=== PATIENT | male | born 1960 | race Caucasian/White ===

== ENCOUNTER 2017-09-19 13:00 | Outpatient (RCR) | payer OTHER, SELFPAY ==
--- NOTE | 2017-09-19 13:00 | DT_ITS ---
This patient was seen during an EMR downtime September 19, 2017 - September 26, 2017. This patient may have a combination of paper and electronic documentation or all paper documentation. All documentation is viewable within the e-chart portion of [employer] for each patient visit.
--- NOTE | 2017-09-27 07:51 | HP.PTEVAL_ITS ---
Patient's Visit Information SHILOH SALDANA is a 56 year old M referred to Physical Therapy by [facility] Doctor with a diagnosis of LOW BACK PAIN. Date of Evaluation: 09/19/17 Physical Therapist: Chris Herrera, PT, - Visit Plan Frequency: 2x /Week Duration: 6 Weeks Plan: Patient to see Aquatic PT for LUMBAR ROM,STRENGTH,FLEXABLITY LE -HIP/HAMS, POSTURE,CONDITIONING - Subjective Subjective: This 56 y/o male presents to physical therapy low back pain for many years. Patient reported falling 80 feet on back in 1982 that started LBP. Patient had h/o multiple lumbar surgery 1988 with fusion ,disectomy/ laminectomy.Patient reports bilteral low back pain with radicular symptosm pain that wraps around anterior thigh. Patient denies parathesia/tingling.Bowel/ bladder -.Patient also reports worsening balance but no h/o of falls in last year. Aggravating factors walking,standing,sitting,driving.Easy factors flexion, stretch,PT.Patient sleeping okay. Patient pain affects quality of life and ADL' S. Pain affects sleeping.Patient had MRI showed stenosis/DDD. SOCIAL: . VOCATION: retired - Pain Bilateral Back Pain Intensity (Out of 10): 5 Pain Intensity Range: 10 - Objective POSTURE: mild foward posture in sitting postion ,reduce lordosis. GAIT: mild posture reciprocal pattern. PALPATION: tender L-S. NEURO: denies parathesia/ tingling,reflexes L3-4,L4-5,L5-S1 2/3. LUMBAR ROM: flexion 25% limited, extension 50% limited,lateral flexion 25% limited,. AROM: right hip flexion and IR both significantly limited and painfull. FLEXABLITY: hams mod loss, extension severe loss - Special Tests L/S Slump test left side: Positive L/S Slump test right side: Positive L/S Left Straight Leg Raise: Positive L/S Right Straight Leg Raise: Positive Lumbar Standing: Flexion - Mechanical Response: No effect Lumbar Standing: Flexion - Symptoms During Testing: Increases Lumbar Standing: Flexion - Symptoms After Testing: Worse Lumbar Standing: Extension - Mechanical Response: No effect Lumbar Standing: Extension - Symptoms During Testing: Increases Lumbar Standing: Extension - Symptoms After Testing: Worse Lumbar Standing: Right Side Glides - Mechanical Response: No effect Lumbar Standing: Right Side [place] - Symptoms During Testing: Abolishes Lumbar Standing: Right Side [place] - Symptoms After Testing: Worse Lumbar Standing: Left Side [place] - Mechanical Response: No effect Lumbar Standing: Left Side [place] - Symptoms During Testing: No effect Lumbar Standing: Left Side [place] - Symptoms After Testing: Worse - Goals Goal 1:: Patient to be Independant with Aquatic PT Goal Time Frame: 4-6 Weeks Goal 2:: Patient to be Independant with posture for AD'S Goal Time Frame: 4-6 Weeks Goal 3:: Patient to decrease low back pain by 50% or greater to improve function . Goal Time Frame: 4-6 Weeks Goal 4:: Patient to improve function of recovery for ADL'S Goal Time Frame: 4-6 Weeks Goal 5:: Patient be able to perform ADL'S and husework tasks with min limitaions - Rehabilitation Potential Physical Therapy Diagnosis: This 56 y/o male has low back pain with h/o of surgery lumbar with decrease ROM ,strength ,and function thus benifit from skilled PT. PATIENT IS MOD COMLEXITY. BACK OWESTRY: 44. MOBLITY. G8978:CK- CURRENT. G8979:CJ-GOAL Rehabilitation Potential: Fair - Anticipated Interventions Patient/Client Instruction: Educate patient on: Condition, Plan of Care For the Purpose of:: To decrease pain, To increase ROM, To improve muscle performance and motor function, To improve ability to perform ADL's, To increase tolerance to activity/condition/position, To improve performance and independence with ADL's, To improve ability of physical actions for home/ community/work/leisure, To improve gait and locomotor functions, To improve health of tissue, To decrease soft tissue restriction, To increase flexibility/ ROM, To improve ability to perform tasks related to life management Therapeutic Exercise to Include: Strength training, Body mechanics, Postural training, Flexibilty training, In an aquatic setting, Active ROM, Dynamic Lumbar Stabilization For the Purpose of:: To decrease pain, To increase ROM, To improve muscle performance and motor function, To improve ability to perform ADL's, To increase tolerance to activity/condition/position, To improve performance and independence with ADL's, To improve ability of physical actions for home/ community/work/leisure, To improve gait and locomotor functions, To improve health of tissue, To decrease soft tissue restriction, To increase flexibility/ ROM, To improve ability to perform tasks related to life management Thank you for the opportunity to evaluate your patient. For Medicare and Medicare HMO plans, please review the plan of care and approve it. It will need to be FAXED BACK to us at [phone] for Medicare purposes. Please let me know if there are questions or concerns regarding this plan of care. Physician Signature: Date:
--- NOTE | 2017-12-08 10:14 | HP.PTDCNRP_ITS ---
HP - Discharge Summary (1) - Patient Information SHILOH SALDANA was seen in my office for initial evaluation on 09/19/17. The following Plan of Care was established for this patient: Initial Frequency: 2x /Week Initial Duration: 6 Weeks - Anticipated Interventions Patient/Client Instruction: Educate patient on: Condition, Plan of Care For the Purpose of:: To decrease pain, To increase ROM, To improve muscle performance and motor function, To improve ability to perform ADL's, To increase tolerance to activity/condition/position, To improve performance and independence with ADL's, To improve ability of physical actions for home/ community/work/leisure, To improve gait and locomotor functions, To improve health of tissue, To decrease soft tissue restriction, To increase flexibility/ ROM, To improve ability to perform tasks related to life management Therapeutic Exercise to Include: Strength training, Body mechanics, Postural training, Flexibilty training, In an aquatic setting, Active ROM, Dynamic Lumbar Stabilization For the Purpose of:: To decrease pain, To increase ROM, To improve muscle performance and motor function, To improve ability to perform ADL's, To increase tolerance to activity/condition/position, To improve performance and independence with ADL's, To improve ability of physical actions for home/ community/work/leisure, To improve gait and locomotor functions, To improve health of tissue, To decrease soft tissue restriction, To increase flexibility/ ROM, To improve ability to perform tasks related to life management This patient was last seen in our office . Pertinent comments regarding their Physical therapy will appear below: Patient seen for PT for intial PT evaluation. At this point I will be discontinuing this patient from physical therapy. I would be happy to see this patient again in the future if found appropriate by the physician. Thank you! Chris Herrera, PT,
== END 2017-09-19 19:00 | disposition home or self-care (01) ==
LOC: PT 13:00
DX: M54.5 Low back pain (principal)
CPT/HCPCS: 97162; G8978; G8979

== ENCOUNTER 2020-02-28 14:17 | Emergency (ER) | payer OTHER, MEDICAID, SELFPAY ==
[2020-02-28 14:24] VITALS: BP 117/65; PULSE 94; RESP 18; TEMP 35.7; O2SAT 98; BMI 26.4
--- NOTE | 2020-02-28 14:33 | ED.VIS.GEN ---
History of Present Illness Chief Complaint: Nausea/Vomiting/Diarrhea Informant: Patient Narrative: Patient is a 59-year-old male who presents to the emergency department for multiple complaints. He states his symptoms initially started last night. He ate at a truck stop and thinks that he might of gotten food poisoning. He has had multiple episodes of vomiting and diarrhea since then. He has been having shaking chills. He also developed a productive cough. No known sick exposures. No known coronavirus exposure. He has not tried taking anything for this. He does have diffuse abdominal discomfort. No urinary symptoms. No rashes. No headache or stiff neck. He has been feeling short of breath but denies chest pain. No leg swelling or calf pain. He is a current everyday smoker. Being on any recent antibiotics. No recent traveling. Past Medical History - Allergies and Home Meds Allergies/Adverse Reactions: Allergies No Known Allergies Allergy (Verified 02/28/20 14:26) Primary Care Physician: [place] [Primary Care Provider] - Prior records reviewed: Yes Smoking Status: Current every day smoker Review of Systems All systems negative except as indicated General: Reports: Chills, Fever, Malaise, Sweats Eyes: Denies: Visual changes - bilaterally, Diplopia ENT: Denies: Rhinorrhea, Sore throat Cardiovascular: Denies: Chest pain, Palpitations Respiratory: Reports: Dyspnea, Cough, Sputum Gastrointestinal: Reports: Abdominal pain, Nausea, Vomiting, Diarrhea. Denies: Melena, Hematochezia Genitourinary: Denies: Dysuria, Hematuria, Frequency Musculoskeletal: Reports: Myalgias. Denies: Back pain, Extremity Pain Skin: Denies: Rash, Wounds Neurological: Denies: Headache, Weakness, Numbness Physical Exam Vital Signs/Narrative: Vital Signs Temp Pulse Resp BP Pulse Ox 02/28/20 14:24 96.3 F L 94 18 117/65 98 General: Well nourished, Well developed, - - Patient appears ill but nontoxic. Head: Normocephalic, Atraumatic Eyes: Perrl, EOMI ENT: Moist mucous membranes, No rhinorrhea Neck: Supple, Nontender Cardiovascular: Regular rhythm, No murmurs, Tachycardia Respiratory: No distress, CTA bilaterally, Chest nontender Abdomen: Soft, Nontender, Nondistended, Normal bowel sounds, Tender - Diffuse, mild Back: Nontender, Normal Inspection Extremities: Nontender, No edema. Negative for: Calf Tenderness Skin: Normal color, No rash Neurological: Alert, Oriented x3, Cranial nerves II-XII grossly intact, Normal Strength, Normal Sensation Psychological: Normal affect, Normal Mood Diagnostic/Tx/Re-eval - Medical Decision Making Patient presents to the emerge department for nausea/vomiting, diarrhea, cough, chills. Upon arrival to the emergency department he is mildly hypothermic but otherwise normal vital signs. Will check basic lab work, EKG and coronavirus swab. Will start IV fluids and give a dose of Zofran and Tylenol for symptomatic treatment. Patient feeling much better after IV fluids, Tylenol and Zofran. Lab work revealed a mildly elevated lactic acid but otherwise no significant acute abnormality. White blood cell count within normal limits. Patient does feel comfortable being discharged home. I do not feel that the elevated lactic acid is from ischemic bowel as his abdominal pain is very mild and not out of proportion to exam. Likely from dehydration secondary to his vomiting and diarrhea. Patient understands the coronavirus is currently pending and needs to self isolate until this results. Symptoms could potentially be related to food poisoning although the cough does not fit this picture. He otherwise is to try to remain as hydrated as possible. We will write a prescription for Zofran. He is to follow-up with his PCP. Warning signs and symptoms which to return to the emergency department are reviewed. He understands and is agreeable with this plan. ED Disposition - Plan for ED Patient: Disposition: Home or Assisted Living Diagnosis: Nausea and vomiting, Diarrhea, Cough, Dehydration Instructions: ED Gastroenteritis Vs Food Poison, ED Dehydration Adult Prescriptions: Ondansetron [Zofran Odt] 4 mg PO Q8H PRN PRN #10 tab PRN Reason: Nausea Transmission Status: Pending to [facility]errals: [facility] [Primary Care Provider] - 3-5 Days
[2020-02-28 15:41] LABS: Absolute Lymphocyte Count 1.59 X10^3/uL (0.83-4.51); Basophil# 0.07 X10^3/uL; Basophil% 1.1 % (0-1); Eosinophil# 0.04 X10^3/uL; Eosinophils% 0.6 % (0-5); Hematocrit 43.9 % (40-54); Hemoglobin 14.5 g/dL (13.0-16.5); Lymphocyte # 1.59 X10^3/ul (4.0); Lymphocyte % 25.6 % (19-41); Mean Corpuscular Hgb 30.4 pg (27.0-32.0); Mean Platelet Vol. 8.7 fl (6.2-12.0); Monocyte# 0.51 X10^3/uL; Monocyte% 8.2 % (0-10); NRBC Flagged by Analyzer 0 % (0-5); Neutrophil % 64.3 % (47-70); Platelet Count 266 K/mm3 (150-450); RBC Distribution Width CV 13.5 % (11.6-14.6); RBC Distribution Width SD 46.3 fl (35.1-43.9); Red Blood Count 4.77 M/mm3 (4.6-6.2); White Blood Count 6.2 K/mm3 (4.4-11.0)
[2020-02-28] MEDS: Ondansetron 4 MG/2 ML Vial IV (15:41)
[2020-02-28 15:54] VITALS: BP 135/95; PULSE 55; RESP 17; TEMP 36.2; O2SAT 100
[2020-02-28 16:02] LABS: ALB/GLOB Ratio 1.1 RATIO (0.9-2.4); AST(SGOT) 13 U/L (15-37); Alanine Aminotransfer ALT/SGPT 18 U/L (16-61); Albumin, Serum 3.9 g/dL (3.2-5.0); Alkaline Phosphatase 130 U/L (45-117); Anion Gap 5 (5-15); BUN 12 mg/dL (7-18); BUN/Creat Ratio 11.1 RATIO (10-20); Calcium,Total 9.3 mg/dL (8.5-10.1); Chloride 108 mmol/L (98-107); Creatinine, Serum 1.08 mg/dL (0.70-1.30); EST Glomerular Filtration Rate 74 mL/min (>60); Est Glom Filt Rate - Afr Amer 89 mL/min (>60); Estimated Creatinine Clearance 78.84 ml/min; Globulin 3.6 g/dL (2.2-4.2); Glucose 122 mg/dL (74-106); Potassium 3.8 mmol/L (3.5-5.1); Protein, Total 7.5 g/dL (6.4-8.2); Sodium Level 141 mmol/L (136-145)
--- NOTE | 2020-02-28 16:03 | RAD_ITS ---
STUDY: X-RAY CHEST REASON FOR EXAM: Male, 59 years old. pt had chicken last night and 2.5 hrs after has had n/v/d. sob. pt is diaphoretic and cold. TECHNIQUE: Single AP portable view of the chest. COMPARISON: None. FINDINGS: The lungs are clear and expanded. There is no demonstrated pleural abnormality. Normal size heart. Normal mediastinum and cecilia. Normal visualized pulmonary arteries. Normal visualized aortic arch and descending thoracic aorta. Normal visualized thoracic spine. Normal visualized ribs, clavicles, and shoulders. There is no demonstrated abnormality of the visualized soft tissue structures of the upper abdomen. RAD/Chest 1 View (Portable) IMPRESSION: Normal x-ray examination of the chest. Electronically Signed: Deven Ellsworth MD at 16:20 EST Tel , Service support ,
[2020-02-28 16:24] LABS: Lactic Acid 2.7 mmol/L (0.4-1.9)
[2020-02-28 18:19] VITALS: BP 109/88; PULSE 77; RESP 17; O2SAT 94
[2020-02-28 19:35] LABS: Reflex Lactate? Y
== END 2020-02-28 19:04 | disposition home or self-care (01) ==
PROVIDERS: Emergency Provider Emergency Medicine
DX: R11.2 Nausea with vomiting, unspecified (principal); R19.7 Diarrhea, unspecified; E86.0 Dehydration; R05 Cough; R06.00 Dyspnea, unspecified; F17.200 Nicotine dependence, unspecified, uncomplicated
CPT/HCPCS: 71045; 80053; 83605; 84484; 85025; 87040; 87635; 96361; 96374; 99285; J2405; U0002

== ENCOUNTER 2020-02-29 08:42 | Observation (INO) | payer OTHER, MEDICAID, SELFPAY ==
[2020-02-28 14:24] VITALS: BMI 26.4
[2020-02-29] VITALS (11 sets, daily range): BP systolic 105–129; BP diastolic 61–85; PULSE 60–77; RESP 13–30; TEMP 35.9–37; O2SAT 98–100; BMI 25.4; BMI 25.0
--- NOTE | 2020-02-29 09:15 | EKG12_ITS ---
Test Reason : SOB Blood Pressure : / mmHG Vent. Rate : 065 BPM Atrial Rate : 065 BPM P-R Int : 000 ms QRS Dur : 088 ms QT Int : 430 ms P-R-T Axes : 000 075 066 degrees QTc Int : 447 ms Normal sinus rhythm Abnormal ECG Confirmed by HARMEET STOVALL MD ([id number]), editor managing director JOHANNA WILLIS ([id number]) on 03/04/2020 8:40:03 AM Referred By: IVAN Confirmed By:HARMEET STOVALL MD
--- NOTE | 2020-02-29 09:17 | ED.VISSUMM ---
- ER Visit Summary Date of Service: 02/29/20 Chief Complaint: Nausea and vomiting. History of Present Illness: The patient is a 59 M patient unsure of his past medical history. He has had prior back surgery he is on medications. States he was seen emergency department 2 to 3 days ago diagnosed with gastroenteritis. Basically negative work-up at that time. Says he is feeling as bad or worse. Complain nausea, vomiting diarrhea. He has not seen any bright red blood. States he has felt feverish but no documented temperature. Denies any dysuria. Physical Examination: Older male vital signs stable. Pulse ox 9% on room air no signs hypoxia. H EENT exam unremarkable. Neck nontender no lymphadenopathy. Lungs clear to auscultation bilaterally. Heart tachycardic rate about 107. No murmur. Abdomen soft nontender normal bowel sounds no peritoneal signs. Rectal exam loose brown stool. No mass. Nontender. No gross blood. No melena. Extremities moves all 4. Calves nontender. No edema. Neurologically is awake and alert with no focal motor deficits. Test Results: Chest x-ray portable 1 view shows no acute abnormality. No infiltrates. Normal cardiac silhouette. Interpreted by ok radiologist also read the film and agrees. EKG shows junctional rhythm rate of 65. No acute signs of MT. Or ischemia. CBC shows white count 10. Hemoglobin 14. Chemistries show mild hypokalemia 3.3 otherwise normal BUN and creatinine. Lactic acid is elevated 3.0. Previously was 2.7. Otherwise the labs are substantially different from the labs the patient had the other day. Emergency Department Course and Treatment: Gentleman with reported nausea vomiting diarrhea recently diagnosed with gastroenteritis. Screening labs will be obtained. IV fluids. Multiple repeat exams the patient has continued nausea and vomiting. Was given a second dose of Zofran. He was then given p.o. fluids and something to eat and he threw all that up. He was unable to keep any of it down. Repeat exam no change. His abdomen is benign. He is nondistended. There are no peritoneal signs. There is no localizing tenderness. There is no signs of obstruction. Treatment Plan: [] Disposition: [] Impression: Acute nausea, vomiting and diarrhea This note was generated with [employer] dictation software. It may contain incorrect words, spelling, and punctuation that were not noted in review of the chart prior to signing ED Disposition - Plan for ED Patient: [facility]errals: [facility] [Primary Care Provider] -
[2020-02-29] MEDS: 0.9% Normal Saline 1,000 ML 1000 ML IV (09:24)
[2020-02-29 09:25] LABS: Absolute Lymphocyte Count 3.99 X10^3/uL (0.83-4.51); Basophil# 0.05 X10^3/uL; Basophil% 0.5 % (0-1); Eosinophil# 0.03 X10^3/uL; Eosinophils% 0.3 % (0-5); Hematocrit 44.2 % (40-54); Hemoglobin 14.8 g/dL (13.0-16.5); Lymphocyte # 3.99 X10^3/ul (4.0); Lymphocyte % 39.9 % (19-41); Mean Corp Hgb Conc 33.5 g/dL (32-36); Mean Corpuscular Hgb 30.6 pg (27.0-32.0); Mean Corpuscular Volume 91.3 fL (80-94); NRBC Flagged by Analyzer 0 % (0-5); Neutrophil # 5.01 X10^3/uL (2.7-7.7); Platelet Count 314 K/mm3 (150-450); RBC Distribution Width CV 13.6 % (11.6-14.6); RBC Distribution Width SD 45.7 fl (35.1-43.9); Red Blood Count 4.84 M/mm3 (4.6-6.2)
[2020-02-29 09:34] LABS: Anion Gap 7 (5-15); BUN 19 mg/dL (7-18); BUN/Creat Ratio 15.1 RATIO (10-20); Calcium,Total 9.8 mg/dL (8.5-10.1); Chloride 109 mmol/L (98-107); Creatinine, Serum 1.26 mg/dL (0.70-1.30); EST Glomerular Filtration Rate 62 mL/min (>60); Est Glom Filt Rate - Afr Amer 75 mL/min (>60); Estimated Creatinine Clearance 69.58 ml/min; Glucose 129 mg/dL (74-106); Potassium 3.3 mmol/L (3.5-5.1); Sodium Level 141 mmol/L (136-145)
--- NOTE | 2020-02-29 09:35 | RAD_ITS ---
STUDY: X-RAY CHEST REASON FOR EXAM: Male, 59 years old. coughing up blood, shortness of breath TECHNIQUE: Single AP portable view of the chest. COMPARISON: 02/28/2020 FINDINGS: The lungs are clear and expanded. There is no demonstrated pleural abnormality. Normal size heart. Normal mediastinum and cecilia. Normal visualized pulmonary arteries. Normal visualized aortic arch and descending thoracic aorta. Normal visualized thoracic spine. Normal visualized ribs, clavicles, and shoulders. There is no demonstrated abnormality of the visualized soft tissue structures of the upper abdomen. RAD/Chest 1 View (Portable) IMPRESSION: Normal x-ray examination of the chest. Electronically Signed: Deven Ellsworth MD at 9:44 EST Tel , Service support ,
--- NOTE | 2020-02-29 09:44 | ED.RN ---
lactic acid 3.0 per lab, dr cabral notified
[2020-02-29] MEDS: Ondansetron 4 MG/2 ML Vial IV ×3 (10:17→21:00)
[2020-02-29 13:22] LABS: Reflex Lactate? Y
[2020-02-29 14:16] LABS: Lactic Acid 1.6 mmol/L (0.4-1.9)
[2020-02-29 14:24] LABS: Lipase 181 U/L (73-393)
[2020-02-29] MEDS: proMETHazine 25 MG/ML Syringe 12.5 MG IV (14:27)
[2020-02-29 14:33] LABS: AST(SGOT) 12 U/L (15-37); Alanine Aminotransfer ALT/SGPT 18 U/L (16-61); Albumin, Serum 4.1 g/dL (3.2-5.0); Alkaline Phosphatase 129 U/L (45-117); Globulin 3.7 g/dL (2.2-4.2); Protein, Total 7.8 g/dL (6.4-8.2)
--- NOTE | 2020-02-29 14:42 | ED.RN ---
spoke with pt daughter per pt request to give her an update about pt dispo.
--- NOTE | 2020-02-29 14:58 | HP.PCM_ITS ---
Problem List (1) Gastroenteritis Status: Acute History of Present Illness Date of Admission: 02/29/20 Chief Complaint: nausea and vomiting The patient is a 59 year old M who has been having intractable nausea and vomiting over the past 2 days. Patient states that occurred after eating something at a truck stop that did not sit well with him. Since then he has been having intractable nausea and vomiting. Also did have some diarrhea but that is since resolved. Seen here in the emergency room on the and looked fine and then was sent home only to come back today. Labs again were unremarkable except for slight elevation in his lactic acid. Patient received antiemetics and IV fluids. Patient never had any issues like this before. Patient does smoke marijuana daily and states he is never had any issues with intractable nausea and vomiting with it. [] Past Medical History Allergies No Known Allergies Allergy (Verified 02/29/20 08:46) Home Medications: Ambulatory Orders Medication Instructions Recorded NK 02/29/20 Smoking Status: Heavy Smoker (>10/day) Tobacco Use: Cigarettes Alcohol: None Drugs: Marijuana - *Family History Maternal History Items: - - No CAD Review of Systems Constitutional: Reports: Anorexia, Malaise. Denies: Chills, Fever Eyes: Denies: Blurred vision, Double vision HEENT: Denies: Head Aches, Sinus Congestion, Sinus Drainage Cardiovascular: Denies: Chest Pain, Palpitations Respiratory: Denies: Cough, Shortness of breath at rest, Sputum production Gastrointestinal: Reports: Abdominal Pain, Diarrhea, Nausea, Vomiting Genitourinary: Denies: Dysuria Musculoskeletal: Denies: Joint Pain, Joint Tenderness Skin: Denies: Rash, Wounds Neurological: Denies: Numbness, Tingling, Focal weakness Hematologic/ Lymphatic: Denies: Easy Bruising, Easy Bleeding Comment: All review of systems were negative except as mentioned above in the history of present illness and the other review of systems. VTE Information - Inpt Only VTE Present on Admission: No VTE Mechan Device Prophylaxis: None VTE Pharm Prophylaxis ordered?: No Reason prophylaxis not ordered:: Treatment Not Indicated Patient Problems: Active and Suspected Problems Gastroenteritis (Acute) - Physical Exam Vitals/I&O's: Vital Signs Temp Pulse Resp BP Pulse Ox 37.0 C 63 16 129/79 H 100 02/29/20 14:00 02/29/20 14:00 02/29/20 14:00 02/29/20 14:00 02/29/20 14:00 Oxygen Flow Rate (L/min) 2 Oxygen Delivery Method Room Air Weight: 87.4 kg Body Mass Index (BMI) 25.4 Intake and Output for Last 24 Hours 02/27/20 02/28/20 02/29/20 23:59 23:59 23:59 Intake Total 1000 / 1000 Balance 1000 / 1000 General: Alert, No apparent distress, - - Appears older than stated age. Afebrile. HEENT: Atraumatic, Normocephalic Neck: No Nodes, Thyroid Normal Size and Texture Lungs: Clear to auscultation, No rhonchi, No wheeze, No rales Cardiovascular: Regular rate, Regular Rhythm, Normal S1, Normal S2, No murmurs Abdomen: Bowel Sounds Present, Soft, Non-Distended, Tender - Diffuse Extremities: No edema, No Calf Tenderness Skin: No rashes, No breakdown Psych/Mental Status: Normal Affect, Appropriate Laboratory Results 02/29/20 08:41: WBC 10.0, RBC 4.84, Hgb 14.8, Hct 44.2, MCV 91.3, MCH 30.6, MCHC 33.5, RDW Std Deviation 45.7 H, RDW Coeff of Hema 13.6, Plt Count 314, MPV 9.0, Immature Gran % (Auto) 0.300, Neut % (Auto) 50.0, Lymph % (Auto) 39.9, [place] % (Auto) 9.0, Eos % (Auto) 0.3, Baso % (Auto) 0.5, Absolute Neuts (auto) 5.0, Absolute Lymphs (auto) 3.99, Nucleated RBC % 0 02/29/20 08:41: Sodium 141, Potassium 3.3 L, Chloride 109 H, Carbon Dioxide 25.0, Anion Gap 7, BUN 19 H, Creatinine 1.26, Estim Creat Clear Calc 69.58, Est GFR (MDRD) Af Amer 75, Est GFR (MDRD) Non-Af 62, BUN/Creatinine Ratio 15.1, Glucose 129 H, Calcium 9.8 02/29/20 08:41: Lactic Acid 3.0 H* 02/29/20 08:41: Total Bilirubin 0.70, Direct Bilirubin 0.20, AST 12 L, ALT 18, Alkaline Phosphatase 129 H, Total Protein 7.8, Albumin 4.1, Globulin 3.7 02/29/20 08:41: Lipase 181 02/29/20 13:40: Lactic Acid 1.6 Assessment/Plan All Active Problems Gastroenteritis (Acute) 1. Suspected gastroenteritis: Could be viral or foodborne associated. Other possibilities could be cannabinoid hyperemesis patient does smoke marijuana daily. Patient immediately refuted that but is on that possibility. Irregardless, supportive management. Belly is soft and benign. He does have some tenderness however I feel this is likely due to the retching. Continue with IV fluids, clear liquid diet, antiemetics and observe. If he gets better then diet can be advanced and if he tolerates that then he can be discharged. However if he gets worse, consider imaging of his abdomen. 2. Hypokalemia: Likely due to the vomiting and diarrhea that he did have. Replace and check magnesium level. 3. VTE prophylaxis low risk as he is observation status at this time. However if it appears the patient is going to require longer hospitalization, consider VTE prophylaxis if indicated. OBSV E&M: [id number] Initial observation care L2
[2020-02-29 16:16] LABS: Magnesium 2.1 mg/dL (1.6-2.6)
--- NOTE | 2020-02-29 16:57 | NURSING ---
attempted to call to verify home meds as pt states that he does take medications at home but can't remember which. no answer. will try again.
[2020-02-29] MEDS: 0.9% Saline Lock 10 ML Syringe IV (17:32)
--- NOTE | 2020-02-29 19:32 | NURSING ---
attempted x2 to call and verify home meds with no answer.
[2020-03-01] MEDS: proCHLORPERazine 10 MG/2 ML Vial 5 MG IV ×2 (00:41→23:08)
[2020-03-01] MEDS: Acetaminophen 325 MG Tablet 650 MG PO (01:56)
[2020-03-01 02:07] VITALS: BP 121/78; PULSE 64; RESP 16; TEMP 36.4; O2SAT 100
[2020-03-01 06:31] LABS: ALB/GLOB Ratio 1.1 RATIO (0.9-2.4); AST(SGOT) 15 U/L (15-37); Alanine Aminotransfer ALT/SGPT 19 U/L (16-61); Albumin, Serum 3.3 g/dL (3.2-5.0); Alkaline Phosphatase 101 U/L (45-117); Anion Gap 2 (5-15); BUN 20 mg/dL (7-18); BUN/Creat Ratio 21.3 RATIO (10-20); Calcium,Total 8.2 mg/dL (8.5-10.1); Chloride 111 mmol/L (98-107); Creatinine, Serum 0.94 mg/dL (0.70-1.30); EST Glomerular Filtration Rate 87 mL/min (>60); Est Glom Filt Rate - Afr Amer 105 mL/min (>60); Estimated Creatinine Clearance 93.26 ml/min; Globulin 3.1 g/dL (2.2-4.2); Glucose 97 mg/dL (74-106); Potassium 4.5 mmol/L (3.5-5.1); Protein, Total 6.4 g/dL (6.4-8.2); Sodium Level 139 mmol/L (136-145)
--- NOTE | 2020-03-01 08:59 | CM.UR ---
Spoke with Ivone at [facility] bed control/transfer center alerting of patient's admission. Faxed clinical at this time to [phone]. Wei Thomason RN, [facility].
[2020-03-01 09:00] VITALS: BP 116/71; PULSE 62; RESP 18; TEMP 37.1; O2SAT 100
--- NOTE | 2020-03-01 09:40 | CT_ITS ---
STUDY: CT BRAIN WITHOUT CONTRAST REASON FOR EXAM: Male, 59 years old. Confusion, nausea/vomiting x 2 days. RADIATION DOSAGE (If Supplied By Facility): CTDIvol = ( 44.99 ) mGy, DLP = ( 863.60 ) mGycm TECHNIQUE: Transaxial CT imaging of the brain was performed without administration of intravenous contrast material. Individualized dose optimization techniques were used for this CT. COMPARISON: No relevant priors. FINDINGS: Normal soft tissue structures. Normal calvarium. Normal size ventricles and extra-axial spaces for the patient''s age. Normal white matter tracts of the cerebral hemispheres. Normal basal ganglia and thalami. Normal brainstem. Normal cerebellum. There is no intracranial hemorrhage. There are no findings of an acute ischemic infarction. Mucous retention cyst in the floor the left maxillary sinus CT/Brain/Head without Contrast IMPRESSION: Normal unenhanced CT scan of the brain. Electronically Signed: Deven Ellsworth MD at 10:31 EST Tel , Service support ,
--- NOTE | 2020-03-01 10:42 | PCM.PN.HOSP ---
<Adolfo Duffy - Last Filed: 03/01/20 10:42> Patient Problems: Active and Suspected Problems Gastroenteritis (Acute) Reason for Visit: intractable nausea Subjective: Pt states that he has had no improvement in his nausea, however as of this AM he has had no vomiting episodes and is able to tolerate clears. No Diarrhea at all. No abdominal pain, fever, chills. Vitals/I&O's: Vital Signs Temp Pulse Resp BP Pulse Ox 98.7 F 62 18 116/71 100 03/01/20 09:00 03/01/20 09:00 03/01/20 09:00 03/01/20 09:00 03/01/20 09:00 Oxygen Flow Rate (L/min) 2 Oxygen Delivery Method Room Air Weight: 189 lb 9.561 oz Body Mass Index (BMI) 25.0 Intake and Output for Last 24 Hours 02/28/20 02/29/20 03/01/20 23:59 23:59 23:59 Intake Total 1450 / 1450 2400 / 2400 Balance 1450 / 1450 2400 / 2400 General: Alert, Oriented x3, Cooperative HEENT: Atraumatic, PERRLA, EOMI, Normocephalic Neck: Supple, No JVD, Negative Carotid Bruits Lungs: Clear to auscultation, Normal air movement Cardiovascular: Regular rate, No murmurs Abdomen: Bowel Sounds Present, Soft, Non Tender Extremities: No edema, Capillary Refill Less than 3 Seconds Skin: No rashes, No breakdown Musculoskeletal: No Tenderness to Palpation of Joints or Extremities Neurological: Cranial nerves II-XII grossly intact Psych/Mental Status: Normal Affect, Appropriate, Alert and oriented to time, place, person, mood and affect Laboratory Results 02/29/20 08:41: Total Bilirubin 0.70, Direct Bilirubin 0.20, AST 12 L, ALT 18, Alkaline Phosphatase 129 H, Total Protein 7.8, Albumin 4.1, Globulin 3.7 02/29/20 08:41: Lipase 181 02/29/20 08:41: Magnesium 2.1 02/29/20 13:40: Lactic Acid 1.6 03/01/20 05:52: Sodium 139, Potassium 4.5, Chloride 111 H, Carbon Dioxide 26.0, Anion Gap 2 L, BUN 20 H, Creatinine 0.94, Estim Creat Clear Calc 93.26, Est GFR (MDRD) Af Amer 105, Est GFR (MDRD) Non-Af 87, BUN/Creatinine Ratio 21.3 H, Glucose 97, Calcium 8.2 L, Total Bilirubin 0.60, AST 15, ALT 19, Alkaline Phosphatase 101, Total Protein 6.4, Albumin 3.3, Globulin 3.1, Albumin/Globulin Ratio 1.1 Current Medications Acetaminophen (Acetaminophen 325 Mg Tablet) 650 mg PO Q6H PRN PRN PRN Reason: Pain Score 1-10/Temp > 100.7 F Last Admin: 03/01/20 01:56 Dose: 650 mg Documented by: Amitriptyline HCl (Amitriptyline 100 Mg Tablet) 100 mg PO DAILY@2200 [facility] Last Admin: 02/29/20 23:24 Dose: Not Given Documented by: Atorvastatin Calcium (Atorvastatin Calcium 20 Mg Tablet) 20 mg PO QHS [facility] Last Admin: 02/29/20 23:24 Dose: Not Given Documented by: Citalopram Hydrobromide (Citalopram 40 Mg Tablet) 40 mg PO DAILY [facility] Sodium Chloride () 250 mls @ 15 mls/hr IV .[id number] PRN PRN Reason: Saline Flush Sodium Chloride () 250 mls @ 15 mls/hr IV .[id number] PRN PRN Reason: Additional IVPB Infusion Sodium Chloride () 1,000 mls @ 100 mls/hr IV .Q10H [facility] Ondansetron HCl (Ondansetron 4 Mg/2 Ml Vial) 4 mg IV Q8H PRN PRN PRN Reason: NAUSEA/VOMITING Last Admin: 02/29/20 21:00 Dose: 4 mg Documented by: Pregabalin (Pregabalin 75 Mg Capsule) 150 mg PO BID [facility] Last Admin: 02/29/20 23:24 Dose: Not Given Documented by: Prochlorperazine Edisylate (Prochlorperazine 10 Mg/2 Ml Vial) 5 mg IV Q4H PRN PRN PRN Reason: Breakthrough nausea/vomiting Last Admin: 03/01/20 00:41 Dose: 5 mg Documented by: Promethazine HCl (Promethazine 25 Mg/Ml Syringe) 12.5 mg IV Q6H PRN PRN PRN Reason: NAUSEA/VOMITING Sodium Chloride (0.9% Saline Lock 10 Ml Syringe) 10 - 40 ml IV UD PRN PRN Reason: SALINE FLUSH Last Admin: 02/29/20 17:32 Dose: 10 ml Documented by: STROKE Vital Signs/Narrative: Vital Signs Temp Pulse Resp BP Pulse Ox 03/01/20 09:00 98.7 F 62 18 116/71 100 Medical Necessity - Tobacco Use Smoking Status: Current every day smoker Tobacco Use: Cigarettes Assessment/Plan All Active Problems Gastroenteritis (Acute) 1. Intractable nausea - improved, but still with nausea. advance diet. adjust antiemetic regimen. Possibly gastroenteritis but he has had no diarrhea, no abd discomfort. Possibly cannabis hyperemesis syndrome. Potassium has normalized. Lactate has resolved. No leukocytosis or fever. Normal lipase and bili. CT brain neg, CXR normal. 2. HLD - statin 3. chronic pain - ultram, lyrica, elavil 4. Anx/Dep - celexa DVT ppx: lovenox DC planning: nausea improved but still significant. advance diet and attempt to control nausea better today. This patient was seen by Adolfo Duffy PA-C under the supervision of Dr. Anne. <Renny Anne F - Last Filed: 03/01/20 18:14> Vitals/I&O's: Vital Signs Temp Pulse Resp BP Pulse Ox 98.8 F 60 18 138/81 H 100 03/01/20 15:46 03/01/20 15:46 03/01/20 15:46 03/01/20 15:46 03/01/20 15:46 Oxygen Flow Rate (L/min) 2 Oxygen Delivery Method Room Air Weight: 189 lb 9.561 oz Body Mass Index (BMI) 25.0 Intake and Output for Last 24 Hours 02/28/20 02/29/20 03/01/20 23:59 23:59 23:59 Intake Total 1450 / 1450 3600 / 3600 Output Total 1260 / 1260 Balance 1450 / 1450 2340 / 2340 Laboratory Results 03/01/20 05:52: Sodium 139, Potassium 4.5, Chloride 111 H, Carbon Dioxide 26.0, Anion Gap 2 L, BUN 20 H, Creatinine 0.94, Estim Creat Clear Calc 93.26, Est GFR (MDRD) Af Amer 105, Est GFR (MDRD) Non-Af 87, BUN/Creatinine Ratio 21.3 H, Glucose 97, Calcium 8.2 L, Total Bilirubin 0.60, AST 15, ALT 19, Alkaline Phosphatase 101, Total Protein 6.4, Albumin 3.3, Globulin 3.1, Albumin/Globulin Ratio 1.1 03/01/20 05:52: Ethyl Alcohol 8.0 03/01/20 05:52: TSH 1.47 03/01/20 10:30: Urine Opiates Screen NEGATIVE, Urine Methadone Screen NEGATIVE, Ur Barbiturates Screen NEGATIVE, Ur Phencyclidine Scrn NEGATIVE, Ur Amphetamines Screen NEGATIVE, U Methamphetamin-MDMA NEGATIVE, U Benzodiazepines Scrn NEGATIVE, Urine Cocaine Screen NEGATIVE, U Cannabinoids Screen POSITIVE H, Ur Drug Screen Comment 03/01/20 12:27: Ammonia 11.0 03/01/20 12:30: Urine Color Yellow, Urine Clarity Clear, Urine pH 7.0, Ur Specific [place] 1.010, Urine Protein Negative, Urine Glucose (UA) Normal, Urine Ketones 50 H, Urine Occult Blood 150 H, Urine Nitrite Negative, Urine Bilirubin Negative, Urine Urobilinogen 1 H, Ur Leukocyte Esterase Negative, Urine RBC 0-5 SEEN, Urine WBC 0 SEEN, Ur Squamous Epith Cells 0 SEEN, Urine Bacteria 0 SEEN, Urine Mucus 0 SEEN Current Medications Acetaminophen (Acetaminophen 325 Mg Tablet) 650 mg PO Q6H PRN PRN PRN Reason: Pain Score 1-10/Temp > 100.7 F Last Admin: 03/01/20 01:56 Dose: 650 mg Documented by: Amitriptyline HCl (Amitriptyline 100 Mg Tablet) 100 mg PO DAILY@2200 [facility] Last Admin: 02/29/20 23:24 Dose: Not Given Documented by: Atorvastatin Calcium (Atorvastatin Calcium 20 Mg Tablet) 20 mg PO QHS [facility] Last Admin: 02/29/20 23:24 Dose: Not Given Documented by: Citalopram Hydrobromide (Citalopram 40 Mg Tablet) 40 mg PO DAILY [facility] Last Admin: 03/01/20 15:04 Dose: 40 mg Documented by: Enoxaparin Sodium (Enoxaparin 40 Mg/0.4 Ml Syringe) 40 mg SC DAILY [facility] Last Admin: 03/01/20 15:03 Dose: 40 mg Documented by: Sodium Chloride () 250 mls @ 15 mls/hr IV .[id number] PRN PRN Reason: Saline Flush Sodium Chloride () 250 mls @ 15 mls/hr IV .[id number] PRN PRN Reason: Additional IVPB Infusion Sodium Chloride () 1,000 mls @ 100 mls/hr IV .Q10H [facility] Last Admin: 03/01/20 15:03 Dose: 100 mls/hr Documented by: Ondansetron HCl (Ondansetron 4 Mg/2 Ml Vial) 4 mg IV Q8H PRN PRN PRN Reason: NAUSEA/VOMITING Last Admin: 02/29/20 21:00 Dose: 4 mg Documented by: Pregabalin (Pregabalin 75 Mg Capsule) 150 mg PO BID [facility] Last Admin: 03/01/20 13:12 Dose: Not Given Documented by: Prochlorperazine Edisylate (Prochlorperazine 10 Mg/2 Ml Vial) 5 mg IV Q4H PRN PRN PRN Reason: Breakthrough nausea/vomiting Last Admin: 03/01/20 00:41 Dose: 5 mg Documented by: Promethazine HCl (Promethazine 25 Mg/Ml Syringe) 12.5 mg IV Q6H PRN PRN PRN Reason: NAUSEA/VOMITING Promethazine HCl (Promethazine 25 Mg Tablet) 25 mg PO Q4H PRN PRN PRN Reason: NAUSEA/VOMITING Sodium Chloride (0.9% Saline Lock 10 Ml Syringe) 10 - 40 ml IV UD PRN PRN Reason: SALINE FLUSH Last Admin: 02/29/20 17:32 Dose: 10 ml Documented by: STROKE Vital Signs/Narrative: Vital Signs Temp Pulse Resp BP Pulse Ox 03/01/20 15:46 98.8 F 60 18 138/81 H 100 Addendum: Dr. Anne I personally examined the patient and reviewed the chart. I agree with the above. 59-year-old male presents to the hospital with nausea, vomiting, diarrhea. He says it started after he ate something [place] a [place] stop. However family is also very concerned because he seems very confused. 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 However, family noticed that his pillowcase was empty and he states that he ran out and just never called to get a refill which is unusual. He knows where he is at but he does not know what year it is. Lab work is unremarkable and CT of the brain was normal. He is supposed to be on amitriptyline, citalopram, and Lyrica however electrolytes are stable and his QTC is normal. We will continue with IV fluids and will obtain an EEG, if that is normal then can proceed with a possible MRI assuming that his confusion remains unchanged over the weekend. OBSV E&M: 11038 Subsequent observation care L2
[2020-03-01 12:00] VITALS: BP 136/75; PULSE 56; RESP 18; TEMP 37.1; O2SAT 100
[2020-03-01 13:14] LABS: Amphetamine Urine VISTA NEGATIVE (<1000 ng/mL); Barbiturate Urine VISTA NEGATIVE (< 200 ng/mL); Benzodiazepine Urine VISTA NEGATIVE (< 200 ng/mL); Cocaine Urine VISTA NEGATIVE (< 300 ng/mL); Ecstacy Urine VISTA NEGATIVE (< 500 ng/mL); Methadone Urine VISTA NEGATIVE (< 300 ng/mL); PCP Urine VISTA NEGATIVE (< 25 ng/mL); THC Urine VISTA POSITIVE (< 50 ng/mL); Vista UDS pH Range 6
--- NOTE | 2020-03-01 13:42 | NURSING ---
eeg in progress
--- NOTE | 2020-03-01 14:02 | TELEMED_ITS ---
[facility] has confirmed receipt of a request for visit. This document confirms receipt of the order initiating the consult. To find the results of the consultation, please view the patient's reports for the scanned Telemed Consult.
[2020-03-01] MEDS: Enoxaparin 40 MG/0.4 ML Syringe SC (15:03)
[2020-03-01] MEDS: 0.9% Normal Saline 1,000 ML 100 ML IV (15:03)
[2020-03-01] MEDS: Citalopram 40 MG TABLET PO (15:04)
[2020-03-01 15:46] VITALS: BP 138/81; PULSE 60; RESP 18; TEMP 37.1; O2SAT 100
[2020-03-01 16:24] LABS: Bacteria 0 SEEN /hpf (None Seen); Mucous, Urine 0 SEEN /hpf (<or=2+); Squamous Epithelial Cells - UA 0 SEEN /hpf (0-5); White Blood Cells 0 SEEN /hpf (0-5)
[2020-03-01 16:25] LABS: Color, Urine Yellow (Yellow); Glucose, Dipstick Normal (Normal); Ketone-Dipstick 50 mg/dl (Negative); Leukocyte Esterase-Dipstick Negative /ul (Negative); Nitrite-Dipstick Negative (Negative); Occult Blood-Urine 150 /ul (Negative); Protein-Dipstick Negative (Negative); Urine Bilirubin Dipstick Negative (Negative); Urine Clarity Clear (Clear); Urine Urobilinogen 1 mg/dl (Normal)
[2020-03-01 16:35] LABS: Red Blood Cells-Urine 0-5 SEEN /hpf (0-5)
[2020-03-01 18:00] LABS: Thyroid Stim Hormone (TSH) 1.47 uIU/mL (0.358-3.74)
[2020-03-01 20:35] VITALS: BP 120/79; PULSE 94; RESP 18; TEMP 36.8; O2SAT 100
[2020-03-01] MEDS: Ondansetron 4 MG/2 ML Vial IV (20:39)
[2020-03-01] MEDS: Atorvastatin Calcium 20 MG Tablet PO (21:41)
[2020-03-01] MEDS: Amitriptyline 100 MG Tablet PO (21:41)
[2020-03-02] MEDS: 0.9% Normal Saline 1,000 ML 100 ML IV ×2 (00:47→12:09)
[2020-03-02 02:38] VITALS: BP 118/78; PULSE 63; RESP 16; TEMP 36.7; O2SAT 96
[2020-03-02 06:39] LABS: Absolute Lymphocyte Count 2.88 X10^3/uL (0.83-4.51); Absolute Neutrophil Count 3.1 X10^3/uL (2.0-7.7); Basophil# 0.08 X10^3/uL; Basophil% 1.1 % (0-1); Eosinophil# 0.21 X10^3/uL; Hematocrit 37.5 % (40-54); Hemoglobin 12.4 g/dL (13.0-16.5); Lymphocyte # 2.88 X10^3/ul (4.0); Lymphocyte % 41.1 % (19-41); Mean Corp Hgb Conc 33.1 g/dL (32-36); Mean Corpuscular Hgb 30.8 pg (27.0-32.0); Mean Corpuscular Volume 93.1 fL (80-94); Mean Platelet Vol. 8.8 fl (6.2-12.0); Monocyte# 0.75 X10^3/uL; Monocyte% 10.7 % (0-10); NRBC Flagged by Analyzer 0 % (0-5); Neutrophil # 3.05 X10^3/uL (2.7-7.7); Neutrophil % 43.7 % (47-70); Platelet Count 225 K/mm3 (150-450); RBC Distribution Width CV 13.4 % (11.6-14.6); RBC Distribution Width SD 45.8 fl (35.1-43.9); Red Blood Count 4.03 M/mm3 (4.6-6.2)
[2020-03-02 07:20] LABS: Anion Gap 6 (5-15); BUN 15 mg/dL (7-18); BUN/Creat Ratio 18.6 RATIO (10-20); Calcium,Total 8.3 mg/dL (8.5-10.1); Chloride 110 mmol/L (98-107); Creatinine, Serum 0.81 mg/dL (0.70-1.30); EST Glomerular Filtration Rate 104 mL/min (>60); Est Glom Filt Rate - Afr Amer 125 mL/min (>60); Estimated Creatinine Clearance 108.23 ml/min; Glucose 80 mg/dL (74-106); Potassium 3.9 mmol/L (3.5-5.1); Sodium Level 140 mmol/L (136-145)
[2020-03-02] MEDS: 0.9% Saline Lock 10 ML Syringe IV (08:39)
[2020-03-02 08:40] VITALS: BP 135/88; PULSE 60; RESP 18; TEMP 36.7; O2SAT 99
--- NOTE | 2020-03-02 10:45 | PCM.DC ---
- Discharge Diagnoses Current Active Problems: Current Active and Chronic Problems Gastroenteritis (Acute) You will use the following diet at home:: No restrictions Your food should be the consistency of: Regular Your liquids should be the consistency of: Regular/Thin Discharge Activity: Return to Normal Activity Additional Instructions: Discontinue use of ALL marijuana / THC products. Allergies/Adverse Reactions: Allergies No Known Allergies Allergy (Verified 02/29/20 08:46) Medications to take at Discharge Ergocalciferol [Vitamin D] 50 mcg PO DAILY 02/29/20 Acetaminophen [Tylenol Tablet] 650 mg PO Q6H PRN PRN tablet 03/02/20 Amitriptyline HCl 100 mg PO DAILY #30 tab 03/02/20 Citalopram Hydrobromide [Citalopram HBr] 40 mg PO DAILY #30 tab 03/02/20 Pregabalin [Lyrica] 75 mg PO BID #60 capsule 03/02/20 Simvastatin 40 mg PO QHS #30 tab 03/02/20 proMETHazine tablet [Phenergan tablet] 25 mg PO Q4H PRN PRN #18 tab 03/02/20 The following prescriptions were given: Amitriptyline HCl 100 mg PO DAILY #30 tab Transmission Status: Pending to [facility] Citalopram Hydrobromide [Citalopram HBr] 40 mg PO DAILY #30 tab Transmission Status: Pending to [facility] Pregabalin [Lyrica] 75 mg PO BID #60 capsule Transmission Status: Sent to [facility] proMETHazine tablet [Phenergan tablet] 25 mg PO Q4H PRN PRN #18 tab PRN Reason: NAUSEA/VOMITING Transmission Status: Pending to [facility] Simvastatin 40 mg PO QHS #30 tab Transmission Status: Pending to [facility] Primary Care Physician: [facility] [Primary Care Provider] - Please follow up with your Primary Care Physician in: 1 week Test Results: Test results from this visit will be discussed in further detail at your follow-up appointment, if applicable. Proposed Discharge Date: 03/02/20
[2020-03-02] MEDS: Pregabalin 75 MG Capsule PO (12:09)
[2020-03-02] MEDS: Enoxaparin 40 MG/0.4 ML Syringe SC (12:09)
[2020-03-02] MEDS: Citalopram 40 MG TABLET PO (12:09)
--- NOTE | 2020-03-02 12:50 | PCM.DC.SUM ---
<Adolfo Duffy - Last Filed: 03/02/20 13:33> Discharge Date and Diagnosis - Problem List Patient Problems: Active and Suspected Problems Gastroenteritis (Acute) Date of Admission: 02/29/20 Date of Discharge: 03/02/20 - Primary Discharge Diagnosis Acute Problems: Active Problems Acute gastroenteritis Acute metabolic encephalopathy 2/2 above Marijuana abuse Hospital Course and Treatment Imaging Results: RAD/Chest 1 View (Portable) IMPRESSION: Normal x-ray examination of the chest. CT/Brain/Head without Contrast IMPRESSION: Normal unenhanced CT scan of the brain. EEG PENDING Procedures: Electroencephalogram Summary of Care Provided: Hospital Course: The patient is a 59 year old M with pmhx as above who presented to the ER with intractable nausea and vomiting, and confusion for 2 days prior to presentation. The patient felt that he had food poisoning from a truck stop but also had been smoking marijuana daily. He was not having diarrhea at home. He was somewhat dehydrated and hypokalemic. He was admitted to the med surg floor and treated with supportive care. He continued to have a fluctuant mental status and labile emotions. CT brain was negative. Drug screen showed cannabinoids. TSH negative. UA negative. Ammonia negative. Per family he does not drink at all. He was restarted on his home meds which included multiple psychotropic substances. Lyrica dose was reduced. Ultra was discontinued. He underwent an EEG however results are pending. Pt has returned to normal mental status at this time. Enteric panel is still pending, however his symptoms are nearly completely resolved. Diet was successfully advanced. He was prescribed phenergan as zofran was ineffective while here in case he experiences some nausea at home. He was discharged home in stable condition. I recommend he completely discontinue marijuana use as he may have had marijuana hyperemesis syndrome and along with his other psychotropic medications he may have experienced some psychosis due to marijuana. He will need follow up with his PCP in 1 weeks. This patient was seen by Adolfo Duffy PA-C under the supervision of Dr. Anne. [] Patient Problems: Active and Suspected Problems Gastroenteritis (Acute) - Physical Exam Vitals/I&O's: Vital Signs Temp Pulse Resp BP Pulse Ox 98.1 F 60 18 135/88 H 99 03/02/20 08:40 03/02/20 08:40 03/02/20 08:40 03/02/20 08:40 03/02/20 08:40 Oxygen Flow Rate (L/min) 2 Oxygen Delivery Method Room Air Weight: 189 lb 9.561 oz Body Mass Index (BMI) 25.0 Intake and Output for Last 24 Hours 02/29/20 03/01/20 03/02/20 23:59 23:59 23:59 Intake Total 1450 / 1450 3700 / 3700 1895.00 / 1895.00 Output Total 1790 / 1790 Balance 1450 / 1450 1910 / 1910 1895.00 / 1895.00 General: Alert, Oriented x3, Cooperative HEENT: Atraumatic, PERRLA, EOMI, Normocephalic Neck: Supple, No JVD, Negative Carotid Bruits Lungs: Clear to auscultation, Normal air movement Cardiovascular: Regular rate, No murmurs Abdomen: Bowel Sounds Present, Soft, Non Tender Extremities: No edema, Capillary Refill Less than 3 Seconds Skin: No rashes, No breakdown Musculoskeletal: No Tenderness to Palpation of Joints or Extremities Neurological: Cranial nerves II-XII grossly intact Psych/Mental Status: Normal Affect, Appropriate, Alert and oriented to time, place, person, mood and affect Microbiology Past 72 Hours 03/01/20 10:30 Urine, Midstream Urine Culture - Preliminary Culture exhibits no growth. Laboratory Results 03/01/20 05:52: Ethyl Alcohol 8.0 03/01/20 05:52: TSH 1.47 03/01/20 10:30: Urine Opiates Screen NEGATIVE, Urine Methadone Screen NEGATIVE, Ur Barbiturates Screen NEGATIVE, Ur Phencyclidine Scrn NEGATIVE, Ur Amphetamines Screen NEGATIVE, U Methamphetamin-MDMA NEGATIVE, U Benzodiazepines Scrn NEGATIVE, Urine Cocaine Screen NEGATIVE, U Cannabinoids Screen POSITIVE H 03/01/20 12:27: Ammonia 11.0 03/01/20 12:30: Urine Color Yellow, Urine Clarity Clear, Urine pH 7.0, Ur Specific [place] 1.010, Urine Protein Negative, Urine Glucose (UA) Normal, Urine Ketones 50 H, Urine Occult Blood 150 H, Urine Nitrite Negative, Urine Bilirubin Negative, Urine Urobilinogen 1 H, Ur Leukocyte Esterase Negative, Urine RBC 0-5 SEEN, Urine WBC 0 SEEN, Ur Squamous Epith Cells 0 SEEN, Urine Bacteria 0 SEEN, Urine Mucus 0 SEEN 03/02/20 06:13: Sodium 140, Potassium 3.9, Chloride 110 H, Carbon Dioxide 24.0, Anion Gap 6, BUN 15, Creatinine 0.81, Estim Creat Clear Calc 108.23, Est GFR (MDRD) Af Amer 125, Est GFR (MDRD) Non-Af 104, BUN/Creatinine Ratio 18.6, Glucose 80, Calcium 8.3 L 03/02/20 06:13: WBC 7.0, RBC 4.03 L, Hgb 12.4 L, Hct 37.5 L, MCV 93.1, MCH 30.8, MCHC 33.1, RDW Std Deviation 45.8 H, RDW Coeff of Hema 13.4, Plt Count 225, MPV 8.8, Immature Gran % (Auto) 0.400, Neut % (Auto) 43.7 L, Lymph % (Auto) 41.1 H, [place] % (Auto) 10.7 H, Eos % (Auto) 3.0, Baso % (Auto) 1.1 H, Absolute Neuts (auto) 3.1, Absolute Lymphs (auto) 2.88, Nucleated RBC % 0 Current Medications Acetaminophen (Acetaminophen 325 Mg Tablet) 650 mg PO Q6H PRN PRN PRN Reason: Pain Score 1-10/Temp > 100.7 F Last Admin: 03/01/20 01:56 Dose: 650 mg Documented by: Amitriptyline HCl (Amitriptyline 100 Mg Tablet) 100 mg PO DAILY@2200 [facility] Last Admin: 03/01/20 21:41 Dose: 100 mg Documented by: Atorvastatin Calcium (Atorvastatin Calcium 20 Mg Tablet) 20 mg PO QHS [facility] Last Admin: 03/01/20 21:41 Dose: 20 mg Documented by: Citalopram Hydrobromide (Citalopram 40 Mg Tablet) 40 mg PO DAILY [facility] Last Admin: 03/02/20 12:09 Dose: 40 mg Documented by: Enoxaparin Sodium (Enoxaparin 40 Mg/0.4 Ml Syringe) 40 mg SC DAILY [facility] Last Admin: 03/02/20 12:09 Dose: 40 mg Documented by: Sodium Chloride () 250 mls @ 15 mls/hr IV .[id number] PRN PRN Reason: Saline Flush Sodium Chloride () 250 mls @ 15 mls/hr IV .[id number] PRN PRN Reason: Additional IVPB Infusion Sodium Chloride () 1,000 mls @ 100 mls/hr IV .Q10H [facility] Last Admin: 03/02/20 12:09 Dose: 100 mls/hr Documented by: Ondansetron HCl (Ondansetron 4 Mg/2 Ml Vial) 4 mg IV Q8H PRN PRN PRN Reason: NAUSEA/VOMITING Last Admin: 03/01/20 20:39 Dose: 4 mg Documented by: Pregabalin (Pregabalin 75 Mg Capsule) 75 mg PO BID [facility] Last Admin: 03/02/20 12:09 Dose: 75 mg Documented by: Prochlorperazine Edisylate (Prochlorperazine 10 Mg/2 Ml Vial) 5 mg IV Q4H PRN PRN PRN Reason: Breakthrough nausea/vomiting Last Admin: 03/01/20 23:08 Dose: 5 mg Documented by: Promethazine HCl (Promethazine 25 Mg/Ml Syringe) 12.5 mg IV Q6H PRN PRN PRN Reason: NAUSEA/VOMITING Promethazine HCl (Promethazine 25 Mg Tablet) 25 mg PO Q4H PRN PRN PRN Reason: NAUSEA/VOMITING Sodium Chloride (0.9% Saline Lock 10 Ml Syringe) 10 - 40 ml IV UD PRN PRN Reason: SALINE FLUSH Last Admin: 03/02/20 08:39 Dose: 10 ml Documented by: Discharge Diet: No Restrictions Discharge Activity: Return to Normal Activity Home Medications: Medications to take at Discharge Ergocalciferol [Vitamin D] 50 mcg PO DAILY 02/29/20 Acetaminophen [Tylenol Tablet] 650 mg PO Q6H PRN PRN tab 03/02/20 Amitriptyline HCl 100 mg PO DAILY #30 tab 03/02/20 Citalopram Hydrobromide [Citalopram HBr] 40 mg PO DAILY #30 tab 03/02/20 Pregabalin [Lyrica] 75 mg PO BID #60 cap 03/02/20 Simvastatin 40 mg PO QHS #30 tab 03/02/20 proMETHazine tablet [Phenergan tablet] 25 mg PO Q4H PRN PRN #18 tab 03/02/20 Following Prescriptions Were Given to Patient: Amitriptyline HCl 100 mg PO DAILY #30 tab Transmission Status: Received by [facility] Citalopram Hydrobromide [Citalopram HBr] 40 mg PO DAILY #30 tab Transmission Status: Received by [facility] Pregabalin [Lyrica] 75 mg PO BID #60 cap Transmission Status: Received by [facility] proMETHazine tablet [Phenergan tablet] 25 mg PO Q4H PRN PRN #18 tab PRN Reason: NAUSEA/VOMITING Transmission Status: Received by [facility] Simvastatin 40 mg PO QHS #30 tab Transmission Status: Received by [facility] Physician: [facility] [Primary Care Provider] - Please follow up with your Primary Care Physician in: 1 week Disposition: Home Minutes spent on discharge:: 35 Patient Condition:: Stable Medical Necessity - Tobacco Use Smoking Status: Current every day smoker Tobacco Use: Cigarettes Meaningful Use Info Meaningful Use Diagnoses (Choose all that apply): None applicable <Renny Anne F - Last Filed: 03/02/20 14:36> Discharge Date and Diagnosis - Primary Discharge Diagnosis Acute Problems: Active Problems Gastroenteritis (Acute) Hospital Course and Treatment Summary of Care Provided: The patient is a 59 year old M [] - Physical Exam Vitals/I&O's: Vital Signs Temp Pulse Resp BP Pulse Ox 98.1 F 60 18 135/88 H 99 03/02/20 08:40 03/02/20 08:40 03/02/20 08:40 03/02/20 08:40 03/02/20 08:40 Oxygen Flow Rate (L/min) 2 Oxygen Delivery Method Room Air Weight: 189 lb 9.561 oz Body Mass Index (BMI) 25.0 Intake and Output for Last 24 Hours 02/29/20 03/01/20 03/02/20 23:59 23:59 23:59 Intake Total 1450 / 1450 3700 / 3700 2045.00 / 5.00 Output Total 1790 / 1790 Balance 1450 / 1450 1910 / 1910 2045.00 / 2044.00 Microbiology Past 72 Hours 03/01/20 18:10 Stool Enteric Bacteriology - Final 02/29/20 08:41 Blood Culture (Wb) - Right Hand Blood Culture - Preliminary No growth in 48 hours. 11/13/20 08:41 Blood Culture (Wb) - Anticubital Right Blood Culture - Preliminary No growth in 48 hours. 03/01/20 10:30 Urine, Midstream Urine Culture - Preliminary Culture exhibits no growth. Laboratory Results 03/01/20 05:52: TSH 1.47 03/01/20 12:30: Urine Color Yellow, Urine Clarity Clear, Urine pH 7.0, Ur Specific [place] 1.010, Urine Protein Negative, Urine Glucose (UA) Normal, Urine Ketones 50 H, Urine Occult Blood 150 H, Urine Nitrite Negative, Urine Bilirubin Negative, Urine Urobilinogen 1 H, Ur Leukocyte Esterase Negative, Urine RBC 0-5 SEEN, Urine WBC 0 SEEN, Ur Squamous Epith Cells 0 SEEN, Urine Bacteria 0 SEEN, Urine Mucus 0 SEEN 03/02/20 06:13: Sodium 140, Potassium 3.9, Chloride 110 H, Carbon Dioxide 24.0, Anion Gap 6, BUN 15, Creatinine 0.81, Estim Creat Clear Calc 108.23, Est GFR (MDRD) Af Amer 125, Est GFR (MDRD) Non-Af 104, BUN/Creatinine Ratio 18.6, Glucose 80, Calcium 8.3 L 03/02/20 06:13: WBC 7.0, RBC 4.03 L, Hgb 12.4 L, Hct 37.5 L, MCV 93.1, MCH 30.8, MCHC 33.1, RDW Std Deviation 45.8 H, RDW Coeff of Hema 13.4, Plt Count 225, MPV 8.8, Immature Gran % (Auto) 0.400, Neut % (Auto) 43.7 L, Lymph % (Auto) 41.1 H, [place] % (Auto) 10.7 H, Eos % (Auto) 3.0, Baso % (Auto) 1.1 H, Absolute Neuts (auto) 3.1, Absolute Lymphs (auto) 2.88, Nucleated RBC % 0 Current Medications Acetaminophen (Acetaminophen 325 Mg Tablet) 650 mg PO Q6H PRN PRN PRN Reason: Pain Score 1-10/Temp > 100.7 F Last Admin: 03/01/20 01:56 Dose: 650 mg Documented by: Amitriptyline HCl (Amitriptyline 100 Mg Tablet) 100 mg PO DAILY@2200 [facility] Last Admin: 03/01/20 21:41 Dose: 100 mg Documented by: Atorvastatin Calcium (Atorvastatin Calcium 20 Mg Tablet) 20 mg PO QHS [facility] Last Admin: 03/01/20 21:41 Dose: 20 mg Documented by: Citalopram Hydrobromide (Citalopram 40 Mg Tablet) 40 mg PO DAILY [facility] Last Admin: 03/02/20 12:09 Dose: 40 mg Documented by: Enoxaparin Sodium (Enoxaparin 40 Mg/0.4 Ml Syringe) 40 mg SC DAILY [facility] Last Admin: 03/02/20 12:09 Dose: 40 mg Documented by: Sodium Chloride () 250 mls @ 15 mls/hr IV .[id number] PRN PRN Reason: Saline Flush Sodium Chloride () 250 mls @ 15 mls/hr IV .[id number] PRN PRN Reason: Additional IVPB Infusion Sodium Chloride () 1,000 mls @ 100 mls/hr IV .Q10H [facility] Last Admin: 03/02/20 12:09 Dose: 100 mls/hr Documented by: Ondansetron HCl (Ondansetron 4 Mg/2 Ml Vial) 4 mg IV Q8H PRN PRN PRN Reason: NAUSEA/VOMITING Last Admin: 03/01/20 20:39 Dose: 4 mg Documented by: Pregabalin (Pregabalin 75 Mg Capsule) 75 mg PO BID [facility] Last Admin: 03/02/20 12:09 Dose: 75 mg Documented by: Prochlorperazine Edisylate (Prochlorperazine 10 Mg/2 Ml Vial) 5 mg IV Q4H PRN PRN PRN Reason: Breakthrough nausea/vomiting Last Admin: 03/01/20 23:08 Dose: 5 mg Documented by: Promethazine HCl (Promethazine 25 Mg/Ml Syringe) 12.5 mg IV Q6H PRN PRN PRN Reason: NAUSEA/VOMITING Promethazine HCl (Promethazine 25 Mg Tablet) 25 mg PO Q4H PRN PRN PRN Reason: NAUSEA/VOMITING Sodium Chloride (0.9% Saline Lock 10 Ml Syringe) 10 - 40 ml IV UD PRN PRN Reason: SALINE FLUSH Last Admin: 03/02/20 08:39 Dose: 10 ml Documented by: Addendum: Dr. Anne I personally examined the patient and reviewed the chart. I agree with the above. 59-year-old male presents to the hospital with nausea, vomiting, diarrhea. He says it started after he ate something at a truck stop. However family is also very concerned because he seems very confused. 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 However, family noticed that his pillowcase was empty and he states that he ran out and just never called to get a refill which is unusual. He knows where he is at but he does not know what year it is. Lab work is unremarkable and CT of the brain was normal. He is supposed to be on amitriptyline, citalopram, and Lyrica however electrolytes are stable and his QTC is normal. We will continue with IV fluids and will obtain an EEG, if that is normal then can proceed with a possible MRI assuming that his confusion remains unchanged over the weekend. 03/02/2020: Doing much better today, his EEG was unremarkable and he is now ANO x3. This was likely an interaction between his marijuana use and his amitriptyline, citalopram, and Lyrica. He would like to go home and his family says that he is back to his baseline. Therefore we will discharge him on his home medications except we will decrease his Lyrica by 50%. He will need to follow-up with his PCP in 3 to 5 days. I did discuss the plan for discharge today he expressed understanding of the risks and benefits of going home and wants to go home today. OBSV E&M: [id number] Observation care discharge
== END 2020-03-02 15:28 | disposition home or self-care (01) ==
LOC: ED 09:20 → MS3 15:13
PROVIDERS: Physician Assistant; Emergency Provider Emergency Medicine; Visit Provider Family Medicine
DX: K52.9 Noninfective gastroenteritis and colitis, unspecified (principal); G93.41 Metabolic encephalopathy; F17.210 Nicotine dependence, cigarettes, uncomplicated; F12.10 Cannabis abuse, uncomplicated; E87.6 Hypokalemia; E78.5 Hyperlipidemia, unspecified; G89.29 Other chronic pain; Z79.899 Other long term (current) drug therapy
CPT/HCPCS: 36415; 70450; 71045; 80048; 80053; 80076; 80307; 80320; 81001; 82140; 83605; 83690; 83735; 84443; 85025; 87040; 87086; 87506; 93005; 95819; 96361; 96372; 96374; 96375; 96376; 97802; 99218; 99285; J7030; A4216; G0378; G0480; J2405

== ENCOUNTER 2023-01-21 08:45 | Day surgery (SDC) | payer OTHER, SELFPAY ==
[2023-01-21] VITALS (7 sets, daily range): BP systolic 98–119; BP diastolic 70–90; PULSE 62–83; RESP 16–18; TEMP 36.4–36.8; O2SAT 96–98; BMI 23.8
[2023-01-21] MEDS: Lactated Ringers 1,000 ML 15 ML IV (09:09)
--- NOTE | 2023-01-21 09:27 | PCM.HP.BLA ---
History and Physical Date of Admission: 01/21/23 Visit Reasons: COLONOSCOPY Chief Complaint: COLONOSCOPY Allergies No Known Allergies Allergy (Verified 12/08/22 12:38) Medications ergocalciferol (vitamin D2) 1,250 mcg (50,000 unit) capsule 50 mcg PO DAILY supplement 02/29/20 [History Confirmed 12/08/22] acetaminophen 325 mg tablet 650 mg (2 x 325 mg) PO Q6H PRN PRN Pain Score 1-10/Temp > 100.7 F 03/02/20 [Rx Confirmed 12/08/22] amitriptyline 100 mg tablet 100 mg PO DAILY depression #30 tabs 03/02/20 [Rx Confirmed 12/08/22] citalopram 40 mg tablet 40 mg PO DAILY depression #30 tabs 03/02/20 [Rx Confirmed 12/08/22] pregabalin 75 mg capsule 75 mg PO BID #60 caps 03/02/20 [Rx Confirmed 12/08/22] promethazine 25 mg tablet 25 mg PO Q4H PRN PRN NAUSEA/VOMITING #18 tabs 03/02/20 [Rx Confirmed 12/08/22] simvastatin 40 mg tablet 40 mg PO QHS cholesterol #30 tabs 03/02/20 [Rx Confirmed 12/08/22] PFSH Family History (Updated 12/08/22 @ 12:35 by Lydia Carmona) Father Colon cancer Social History Smoking Status: Former smoker how long ago did patient quit smokin DAYS second hand exposure: Yes HPI HPI HPI: . He does walk 3 times a week and he does ride an electric bicycle. He just learned recently that his father had colon cancer. He was not aware of that previously. He denies abdominal pain bright red blood per rectum or melena. 61-year-old gentleman is referred by the [facility] for surgical consultation regarding a potential screening colonoscopy. A written copy of my surgical consult recommendations will return to them. As of October 26 the patient had a white blood cell count of 7.9 with a hemoglobin 14.1 hematocrit 42.6 and a platelet count of 269,000. He denies symptoms of bright red blood per rectum or melena. He claims that his health is otherwise been stable. He lost his within the recent past. He is trying to look over his health better. He has been off the cigarettes for for 2 weeks. He denies any bright red blood per rectum or melena. He just recently learned that his father had colon cancer. The patient himself has never had a colonoscopy. He denies any history of DVT. ROS General General: Yes fatigue; No weight change, appetite, colon cancer, breast cancer or weakness HEENT HEENT: No difficulty swallowing, eye injury, eye surgery, swollen glands or hoarseness Endo Endocrine: No thyroid disease, diabetes mellitus, thyroid cancer, Hair loss, heat intolerance or cold intolerance Skin Skin: No rash or changing moles Breast Breast: No left breast lump, right breast lump, nipple discharge, breast pain, abnormal mammogram, abnormal US or breast enlargement Musc Musculoskeletal: Yes back problems, arthritis and rheumatoid arthritis; No gout or joint pain Cardio Cardiovascular: No murmur, pacemaker, heart disease, atrial fibrillation, high blood pressure, heart attack, heart stent, palpitations, shortness of breat with exertion or chest pain Psych Psychiatric: Yes depression and anxiety; No hearing voices Resp Respiratory: Yes shortness of breath, Yes sleep apnea, No cough, Yes COPD, No asthma, No emphysema and No wheezing Gastro Gastrointestinal: No abdominal pain, No nausea or vomiting, No diarrhea, No constipation, No blood in stool, No acid reflux, No hemorrhoids, No ulcers, No gallbladder problem and No black,tarry stools Mike Hematologic: No blood thinners, No blood disorders, No bleeding, No anemia and No blood clots Neuro Neurologic: No system reviewed and no additional complaints, except as documented, No as per HPI, No abnormal gait, No abnormal hearing, No abnormal movements, No abnormal speech, No behavioral changes, No burning sensations, No confusion, No convulsions, No disequilibrium, No dizziness, No localized weakness, No frequent falls, No headache(s), No lack of coordination, No loss of vision, No memory loss, Yes numbness, No other visual disturbances, No radicular pain, No restless legs, No sensory deficit, No syncope, Yes tingling, No tremor(s), No weakness and No other Exam Const General: cooperative, comfortable and no acute distress Nutritional Appearance: average body habitus [facility] Head: normal to inspection Eyes General: appearance normal, both eyes and all related structures Neck Neck: normal visual inspection Chest Other: Increased anterior posterior diameter Resp Effort & Inspection: normal respiratory effort Cardio Rate: regular rate Rhythm: regular rhythm GI Palpation: soft and no hepatosplenomegaly Musc Cervical Spine: normal cervical lordosis Skin General: no rashes or lesions noted Neuro General: patient alert, patient awake and patient oriented x3 Extrem General: no calf tenderness Psych Appearance: grossly normal Assessment and Plan Assessment and Plan (1) Screening for intestinal cancer: Status: Acute Plan: I recommended the patient a screening colonoscopy. He has not had a previous one. As noted he recently found out that his father had colon cancer. The patient is aware that I will recommend at least an every 5-year cycle. He has had an opportunity to ask and have questions answered. I very much appreciate the kind option of assisting with the surgical care. He reminds me that I had assisted him with this now late 's colonoscopy. We will schedule and proceed at his discretion. Copy: [facility] Leighton Grimm M.D., F.A.C.S I have examined the patient and the H&P has been reviewed. There are no clinical changes since date of exam. Leighton Grimm M.D., F.A.C.S.
--- NOTE | 2023-01-21 09:45 | COLBX_PTH ---
PATIENT: SHILOH SALDANA LOC: EN U#:[id number] AGE/SX: 62/M ROOM: RE01/21/[address]: Dr. Leighton Grimm MD : 1960 BED: DIS: 01/21/2023 SPEC #: [id number] RECD: 01/21/23 13:08 STATUS: ZULY MAYELA #: [id number] TAM: 01/21/23 09:[address]: Leighton Grimm DEPT: SURGICAL PATHOLOGY RECD BY: Galina Cantrell ENTERED: 01/21/23 13:32 SP TYPE: COLON BX OTHR DR: [facility] Tissues: Rectum, NOS Procedures: Surgery Specimen Level IV HEADER OPERATION: Colonoscopy, biopsy PRE-OP DIAGNOSIS: Screening TISSUE SUBMITTED: Proximal rectum polyps biopsy MICROSCOPIC DIAGNOSIS Proximal rectal polyps, biopsy: Fragments of hyperplastic polyp. AM:yolanda 01/24/2023 MICROSCOPIC DESCRIPTION Slides are reviewed. GROSS DESCRIPTION Received in fixative is one container labeled with the patient's name and designated proximal rectum polyps. The specimen consists of multiple irregular fragments of light johnson soft tissue that in aggregate measure 2.0 x 0.5 x 0.1 cm. The specimen is totally submitted in one cassette. / SJ:yolanda 01/21/2023 TC:5 CPT: 69280
--- NOTE | 2023-01-21 10:43 | OP.CCLET_ITS ---
01/21/2023 [facility] Re : Colonoscopy procedure for [facility] This procedure was performed on Saturday, January 21, 2023. My impressions and recommendations are as follows: Impressions : - Enlarged prostate found on digital rectal exam. - Three 3 to 5 mm polyps in the proximal rectum, removed with a cold biopsy forceps. Resected and retrieved. - Diverticulosis in the sigmoid colon. Recommendations : - Discharge patient to home. - Resume previous diet. - Continue present medications. - Repeat colonoscopy in 5 years for surveillance based on pathology results. - Telephone my office for pathology results in 1 week. My findings are described in the full procedure note, which is enclosed. If I can be of further assistance, please feel free to contact me at Doctor phone number(s): Work: . Sincerely, Leighton Grimm MD 01/21/2023 10:42:49 AM This report has been signed electronically.
--- NOTE | 2023-01-21 10:43 | OP.COLON_ITS ---
Patient Name: Charles Echevarria Procedure Date: 01/21/2023 10:09 AM Date of : 1960 Age: 62 Procedure: Colonoscopy Indications: Screening for colorectal malignant neoplasm Providers: Leighton Grimm MD Medicines: See the Anesthesia note for documentation of the administered medications Patient Profile: Last Colonoscopy: none. The patient's first colonoscopy is today. Complications: No immediate complications. Procedure: Pre-Anesthesia Assessment: - Prior to the procedure, a History and Physical was performed, and patient medications and allergies were reviewed. The patient's tolerance of previous anesthesia was also reviewed. The risks and benefits of the procedure and the sedation options and risks were discussed with the patient. All questions were answered, and informed consent was obtained. Prior Anticoagulants: The patient has taken no anticoagulant or antiplatelet agents. ASA Grade Assessment: II - A patient with mild systemic disease. After reviewing the risks and benefits, the patient was deemed in satisfactory condition to undergo the procedure. After I obtained informed consent, the scope was passed under direct vision. Throughout the procedure, the patient's blood pressure, pulse, and oxygen saturations were monitored continuously. The Colonoscope was introduced through the anus and advanced to the cecum, identified by appendiceal orifice and ileocecal valve. The colonoscopy was performed without difficulty. The patient tolerated the procedure well. The quality of the bowel preparation was adequate to identify polyps. The ileocecal valve and the appendiceal orifice were photographed. Scope In: 10:17:23 AM Scope Withdrawal Time 0 hours 14 minutes 45 seconds Scope Out: 10:37:02 AM Total Procedure Duration Time 0 hours 19 minutes 39 seconds Findings: The digital rectal exam findings include enlarged prostate. Three sessile polyps were found in the proximal rectum. The polyps were 3 to 5 mm in size. These polyps were removed with a cold biopsy forceps. Resection and retrieval were complete. Scattered diverticula were found in the sigmoid colon. Impression: - Enlarged prostate found on digital rectal exam. - Three 3 to 5 mm polyps in the proximal rectum, removed with a cold biopsy forceps. Resected and retrieved. - Diverticulosis in the sigmoid colon. Recommendation: - Discharge patient to home. - Resume previous diet. - Continue present medications. - Repeat colonoscopy in 5 years for surveillance based on pathology results. - Telephone my office for pathology results in 1 week. Procedure Code(s): --- Professional --- 59248, Colonoscopy, flexible; with biopsy, single or multiple Diagnosis Code(s): --- Professional --- Z12.11, Encounter for screening for malignant neoplasm of colon D12.8, Benign neoplasm of rectum N40.0, Benign prostatic hyperplasia without lower urinary tract symptoms K57.30, Diverticulosis of large intestine without perforation or abscess without bleeding CPT copyright 2021 [employer]. All rights reserved. The codes documented in this report are preliminary and upon flatwork finisher review may be revised to meet current compliance requirements. Leighton Grimm MD 01/21/2023 10:42:49 AM This report has been signed electronically. Number of Addenda: 0 Note Initiated On: 01/21/2023 10:09 AM
== END 2023-01-21 11:31 | disposition home or self-care (01) ==
LOC: EN 08:47 → AC 08:50
PROVIDERS: Visit Provider Surgery
PROC: 0DJD8ZZ Inspection of Lower Intestinal Tract, Via Natural or Artificial Opening Endoscopic (ICD-10-PCS; CPT 45378; principal; 2023-01-21 09:40)
DX: Z12.11 Encounter for screening for malignant neoplasm of colon (principal); K57.30 Diverticulosis of large intestine without perforation or abscess without bleeding; N40.0 Benign prostatic hyperplasia without lower urinary tract symptoms; Z87.891 Personal history of nicotine dependence; Z80.0 Family history of malignant neoplasm of digestive organs; K62.1 Rectal polyp
CPT/HCPCS: 45380; 88305; J7120; J2405